=== PATIENT | female | born 1990 | race Caucasian/White ===

== ENCOUNTER → 2021-02-08 | Outpatient (CLI) | payer OTHER | LOC: COL.RAD 09:43 | DX: Z86.39 Personal history of other endocrine, nutritional and metabolic disease (principal) ==

== ENCOUNTER → 2021-08-10 | Outpatient (CLI) | payer OTHER | LOC: MHCPAIN 13:40 | DX: M79.18 Myalgia, other site (principal); M53.3 Sacrococcygeal disorders, not elsewhere classified | CPT/HCPCS: G0463 ==

== ENCOUNTER 2023-11-18 11:30 | Emergency (ER) | payer OTHER ==
[~2023-11-18] VITALS: Ht 177.8 cm; Wt 55.5 kg
[2023-11-18 11:34] VITALS: BP 122/79; TEMP 98
[2023-11-18 13:07] VITALS: PULSE 61
== END 2023-11-18 13:08 | disposition home or self-care (01) ==
LOC: COL.ER 11:30
DX: S61.210A Laceration without foreign body of right index finger without damage to nail, initial encounter (principal); W26.9XXA Contact with unspecified sharp object(s), initial encounter; Y93.G1 Activity, food preparation and clean up